=== PATIENT | female | born 1950 | race Caucasian/White ===

== ENCOUNTER 2023-04-23 19:10 | Emergency (ER) | payer BC ==
[~2023-04-23] VITALS: Ht 165.1 cm; Wt 66.0 kg
[2023-04-23 19:26] VITALS: BP 140/70; PULSE 75; RESP 18; O2SAT 98
[2023-04-23] MEDS ORDERED: ACETAMINOPHEN 500MG TABLET PO ONE (20:45)
[2023-04-23 22:22] VITALS: TEMP 98.6
[2023-04-23] MEDS ORDERED: ACET-2708 MT (22:41)
== END 2023-04-24 05:06 | disposition home or self-care (01) ==
LOC: ER 19:10
DX: S80.11XA Contusion of right lower leg, initial encounter (principal); F41.9 Anxiety disorder, unspecified; Z88.5 Allergy status to narcotic agent; Z96.653 Presence of artificial knee joint, bilateral; Z90.13 Acquired absence of bilateral breasts and nipples; W18.39XA Other fall on same level, initial encounter; Y93.89 Activity, other specified; Y92.89 Other specified places as the place of occurrence of the external cause; Y99.8 Other external cause status
CPT/HCPCS: 73562; 73590; 73610; 73630; 99284